=== PATIENT | male | born 1935 | race Caucasian/White ===

== ENCOUNTER 2024-11-13 10:59 | Day surgery (SDC) | payer MEDICARE, SELFPAY ==
[2024-11-13] VITALS (7 sets, daily range): BP systolic 112–139; BP diastolic 65–78; PULSE 60–91; RESP 16; TEMP 36.2–36.6; O2SAT 96–98; BMI 28.0
--- NOTE | 2024-11-13 11:15 | PCM.HP.STD ---
HPI - General HPI Narrative ORLANDO BENSON, is a 89 M who presents with left forearm SSC, keratoacanthomatous type. I reviewed the pathology report and patient confirmed the site (from August 2024). Current Encounter (DATE OF SURGERY H&P UPDATE): I saw and examined the patient this morning in pre-operative holding. We discussed risks and benefits of today's surgery and they would like to proceed. NO CHANGE in health history since last seen and evaluated. Ready to proceed with surgery. [facility] Medical History Vertigo Wears glasses Easy bruising Former smoker Bladder cancer Skin cancer Hypertension Cancer Diabetes Bladder infection Home Medications ?Medication ?Instructions ?Recorded ?Last Taken ?Type aspirin 81 mg tablet 81 mg PO QDAY 10/25/24 Unknown History cholecalciferol (vitamin D3) 125 125 mcg PO QDAY 10/25/24 Unknown History mcg (5,000 unit) capsule lenalidomide 10 mg capsule 10 mg PO QDAY 10/25/24 Unknown History lisinopril 10 mg tablet 10 mg PO QDAY 10/25/24 Unknown History metformin 500 mg tablet,extended 500 mg PO QDAY 10/25/24 Unknown History release 24 hr (Glucophage XR) prochlorperazine maleate 10 mg 10 mg PO Q6H PRN nausea and 10/25/24 Unknown History tablet (Compazine) vomiting valacyclovir 500 mg tablet 500 mg PO QDAY 10/25/24 Unknown History (Valtrex) Allergy/AdvReac Type Severity Reaction Status Date / Time No Known Allergies Allergy Verified 10/31/24 14:59 Family History Son Colon cancer Father Diabetes Surgical History Hx of inguinal hernia surgery H/O prostatectomy Social History Smoking Status: Former smoker alcohol intake: current substance use type: does not use additional social history: pt former smoker, denies ibuprofen use, pt has history of DVT Pt takes aspiring daily Physical Exam Narrative Details - Skin: Lesion on left forearm measuring 3.1 by 2.9 cm, indurated with some redness - Neurological: No numbness or tingling in the left dorsum of the hand - Lymphatic: No left axillary or epitrochlear lymphadenopathy I marked it and patient was in agreement with the site marking. 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 The low white blood cell count will be monitored, and its impact on wound healing and skin graft success will be considered. I talked to the patient extensively about the risks of surgery, including bleeding, infection, damage to surrounding structures (particularly the superficial branch of the radial nerve), poor scaring, surgical site dehiscence and wound formation, skin graft failure, need for wound care, need for repeat operations, failure to obtain the desired result, DVT/PE, and the risks of anesthesia including , including stroke (from low blood pressure/ischemia or clot). The benefits and alternatives of this surgery were also discussed. All of their questions were answered, and they agreed to proceed with surgery. Stage 1: Excision squamous left forearm cell carcinoma and placement of temporary dressing (dermal substitute) (CPT: 69828, 61062) Stage 2: Skin graft left forearm (CPT, 49966, 95266) once clear margins (skin graft from left anterior arm) Both MAC/local INTERVAL H&P PLAN, DATE OF SURGERY: We will proceed with surgery today. Plan Details I reiterated the above noted plan and the risks, benefits, and alternatives with the patient. He was in agreement and elected to proceed.
--- NOTE | 2024-11-13 11:15 | PCM.HP.STD ---
HPI - General HPI Narrative ORLANDO BENSON, is a 89 M who presents with left forearm SSC, keratoacanthomatous type. I reviewed the pathology report and patient confirmed the site (from August 2024). Current Encounter (DATE OF SURGERY H&P UPDATE): I saw and examined the patient this morning in pre-operative holding. We discussed risks and benefits of today's surgery and they would like to proceed. NO CHANGE in health history since last seen and evaluated. Ready to proceed with surgery. [facility] Medical History Vertigo Wears glasses Easy bruising Former smoker Bladder cancer Skin cancer Hypertension Cancer Diabetes Bladder infection Home Medications ?Medication ?Instructions ?Recorded ?Last Taken ?Type aspirin 81 mg tablet 81 mg PO QDAY 10/25/24 Unknown History cholecalciferol (vitamin D3) 125 125 mcg PO QDAY 10/25/24 Unknown History mcg (5,000 unit) capsule lenalidomide 10 mg capsule 10 mg PO QDAY 10/25/24 Unknown History lisinopril 10 mg tablet 10 mg PO QDAY 10/25/24 Unknown History metformin 500 mg tablet,extended 500 mg PO QDAY 10/25/24 Unknown History release 24 hr (Glucophage XR) prochlorperazine maleate 10 mg 10 mg PO Q6H PRN nausea and 10/25/24 Unknown History tablet (Compazine) vomiting valacyclovir 500 mg tablet 500 mg PO QDAY 10/25/24 Unknown History (Valtrex) Allergy/AdvReac Type Severity Reaction Status Date / Time No Known Allergies Allergy Verified 10/31/24 14:59 Family History Son Colon cancer Father Diabetes Surgical History Hx of inguinal hernia surgery H/O prostatectomy Social History Smoking Status: Former smoker alcohol intake: current substance use type: does not use additional social history: pt former smoker, denies ibuprofen use, pt has history of DVT Pt takes aspiring daily Physical Exam Narrative Details - Skin: Lesion on left forearm measuring 3.1 by 2.9 cm, indurated with some redness - Neurological: No numbness or tingling in the left dorsum of the hand - Lymphatic: No left axillary or epitrochlear lymphadenopathy I marked it and patient was in agreement with the site marking. 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 The low white blood cell count will be monitored, and its impact on wound healing and skin graft success will be considered. I talked to the patient extensively about the risks of surgery, including bleeding, infection, damage to surrounding structures (particularly the superficial branch of the radial nerve), poor scaring, surgical site dehiscence and wound formation, skin graft failure, need for wound care, need for repeat operations, failure to obtain the desired result, DVT/PE, and the risks of anesthesia including , including stroke (from low blood pressure/ischemia or clot). The benefits and alternatives of this surgery were also discussed. All of their questions were answered, and they agreed to proceed with surgery. Stage 1: Excision squamous left forearm cell carcinoma and placement of temporary dressing (dermal substitute) (CPT: 38608, 48124) Stage 2: Skin graft left forearm (CPT, 51590, 72577) once clear margins (skin graft from left anterior arm) Both MAC/local INTERVAL H&P PLAN, DATE OF SURGERY: We will proceed with surgery today. Plan Details I reiterated the above noted plan and the risks, benefits, and alternatives with the patient. He was in agreement and elected to proceed.
[2024-11-13] MEDS: Lactated Ringers 1,000 ML 15 ML IV (11:30)
--- NOTE | 2024-11-13 11:36 | PRE.ANES_ITS ---
ASA Classification* ASA Classification ASA Classification: 3 Assessment & Plan Anesthesia* Anesthesia Assessment Anesthesia Assessment: Discussed sedation and/or anesthesia options, risks, benefits, and alternatives with patient/parents/legal guardian/POA. Questions invited. The patient/parents/legal guardian/POA seems to understand and agrees to proceed with anesthesia plan. Reviewed the physical assessment, medical history, allergy history and patient home medications list prior to surgery/procedure/anesthetic and documented any changes. Performed airway and anesthesia risk assessments. Procedural Plan Procedural Plan:: NOT optimized for anesthesia Anesthesia Type Anesthesia Type: MAC History Source History Obtained from:: Patient and Chart Anesthesia Focused Assessment* Temperature: 97.2 F Pulse Rate: 60 Blood Pressure: 139/77 Respiratory Rate: 16 Pulse Ox: 96 Oxygen Delivery Method: Room Air Airway Assessment Mouth opens: >3 cm Mallampati Score: I Teeth Condition: Intact Labs Anesthesia Preop lab: CBC CHEMISTRY COAG Pre-Assessment Diagnosis/Proposed Procedure Planned Operative Procedure(s): EXCISISON SQUAMOUS CELL CARCINOMA LEFT FOREARM AND PLACEMENT OF TEMPORARY DRESSING- THERASKIN Anesthesia History 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 When Was Last Pacemaker Check QUESTION #4 FULL TEXT: You/Your Family Experience fever (hyperthermia) with Anesthesia Last Oral Intake Last Oral intake: Last Oral Intake NPO since 07:00 11/13/24 11:25 Meds taken in AM with sips of Yes 11/13/24 11:25 water? Meds patient instructed to vit d 11/13/24 11:25 take am of surgery lisinopril metformin valtrex PONV PONV - metal model maker: PONV - metal model maker Female No 10/31/24 15:02 HX of Motion Sickness No 10/31/24 15:02 HX of N/V After Surgery No 10/31/24 15:02 Non-Smoker Yes 10/31/24 15:02 Duration of Surgery greater No 10/31/24 15:02 than 60 minutes Number of Risk Factors 1 10/31/24 15:02 PONV Score Low Risk 10/31/24 15:02 Height & Weight Height & Weight: Anesthesia: Height & Weight Height 5 ft 9 in 11/13/24 11:25 Weight: 86 kg 11/13/24 11:25 Body Mass Index (BMI) 28.0 11/13/24 11:25 Respiratory Assessment Respiratory Assessment - metal model maker: Respiratory Tract Infection Hx - metal model maker Hx Respiratory Tract Infection No 10/31/24 15:02 STOP Sleep Apnea STOP Sleep Apnea - metal model maker: STOP Sleep Apnea - metal model maker Hx Hypertension Yes: CONTROLLED WITH MEDS 10/31/24 15:02 Hx Sleep Apnea No 10/31/24 15:02 CPAP BIPAP Do you snore loudly (louder No 10/31/24 15:02 than talking or can be heard Do you often feel tired/ No 10/31/24 15:02 fatigued/ sleepy during daytime? Has anyone observed you stop No 10/31/24 15:02 breathing during sleep? STOP Results Negative 10/31/24 15:02 QUESTION #5 FULL TEXT : Do you snore loudly (louder than talking or can be heard through closed doors)? 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 Specify any problems Hx of Preganancy in last 3 N/A 10/31/24 15:02 Months Nurse Filling Out Transfusion [email or web address] 10/31/24 15:02 & Questions: Date: 10/31/24 10/31/24 15:02 Time: 15:10/31/24 15:02 Patient unable to answer at this time (ie. confused, unrespo /Reproduction History /Reproductive History - metal model maker: /Reproductive Hx- metal model maker Hx Now Gestational Age (in weeks): EDC: Hx Hx Para Hx Section SAB Active Medications Active Medications: Current Medications Generic Name Dose Route Start Last Admin Trade Name Freq PRN Reason Stop Dose Admin Cefazolin Sodium 2 gm/ Sodium 110 mls @ 200 mls/hr 11/13/24 13:30 Chloride IV 11/13/24 14:02 INTRAOP ONE Lactated Ringer's 1,000 mls @ 15 mls/hr 11/13/24 11:15 11/13/24 11:30 IV 15 mls/hr .Q48H CHAVO Administration PFSH Medical History Vertigo Wears glasses Easy bruising Former smoker Bladder cancer Skin cancer Hypertension Cancer Diabetes Bladder infection Home Medications ?Medication ?Instructions ?Recorded ?Last Taken ?Type cholecalciferol (vitamin D3) 125 125 mcg PO QDAY 10/2511/13/24 History mcg (5,000 unit) capsule lenalidomide 10 mg capsule 10 mg PO QDAY 10/25/2412/23 History lisinopril 10 mg tablet 10 mg PO QDAY 10/25/2411/13 History metformin 500 mg tablet,extended 500 mg PO QDAY 11/13/24 History release 24 hr (Glucophage XR) prochlorperazine maleate 10 mg 10 mg PO Q6H PRN nausea and 10/25/24 Unknown History tablet (Compazine) vomiting valacyclovir 500 mg tablet 500 mg PO QDAY 10/25/24 History (Valtrex) apixaban 5 mg tablet (Eliquis) 10 mg PO BID 11/13/24 0 11/12/24 History aspirin 325 mg tablet,delayed 325 mg PO DAILY 11/13/24 11/10/24 History release (Ecotrin) oxycodone 5 mg tablet 5 mg PO BID PRN pain 5 days #10 11/13/24 Unknown Rx tabs Allergy/AdvReac Type Severity Reaction Status Date / Time No Known Allergies Allergy Verified 10/31/24 14:59 Family History Son Colon cancer Father Diabetes Surgical History Hx of inguinal hernia surgery H/O prostatectomy Social History Smoking Status: Former smoker alcohol intake: current substance use type: does not use additional social history: pt former smoker, denies ibuprofen use, pt has history of DVT Pt takes aspiring daily Review of Systems (Anesthesia) ROS Narrative System reviewed and no additional complaints, except as documented. Physical Exam Const alert and oriented x3 Skin Skin Narrative: left forearm skin lesion Neuro oriented x3
--- NOTE | 2024-11-13 11:36 | PRE.ANES_ITS ---
ASA Classification* ASA Classification ASA Classification: 3 Assessment & Plan Anesthesia* Anesthesia Assessment Anesthesia Assessment: Discussed sedation and/or anesthesia options, risks, benefits, and alternatives with patient/parents/legal guardian/POA. Questions invited. The patient/parents/legal guardian/POA seems to understand and agrees to proceed with anesthesia plan. Reviewed the physical assessment, medical history, allergy history and patient home medications list prior to surgery/procedure/anesthetic and documented any changes. Performed airway and anesthesia risk assessments. Procedural Plan Procedural Plan:: NOT optimized for anesthesia Anesthesia Type Anesthesia Type: MAC History Source History Obtained from:: Patient and Chart Anesthesia Focused Assessment* Temperature: 97.2 F Pulse Rate: 60 Blood Pressure: 139/77 Respiratory Rate: 16 Pulse Ox: 96 Oxygen Delivery Method: Room Air Airway Assessment Mouth opens: >3 cm Mallampati Score: I Teeth Condition: Intact Labs Anesthesia Preop lab: CBC CHEMISTRY COAG Pre-Assessment Diagnosis/Proposed Procedure Planned Operative Procedure(s): EXCISISON SQUAMOUS CELL CARCINOMA LEFT FOREARM AND PLACEMENT OF TEMPORARY DRESSING- THERASKIN Anesthesia History 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 When Was Last Pacemaker Check QUESTION #4 FULL TEXT: You/Your Family Experience fever (hyperthermia) with Anesthesia Last Oral Intake Last Oral intake: Last Oral Intake NPO since 07:00 11/13/24 11:25 Meds taken in AM with sips of Yes 11/13/24 11:25 water? Meds patient instructed to vit d 11/13/24 11:25 take am of surgery lisinopril metformin valtrex PONV PONV - business objects analyst: PONV - business objects analyst Female No 10/31/24 15:02 HX of Motion Sickness No 10/31/24 15:02 HX of N/V After Surgery No 10/31/24 15:02 Non-Smoker Yes 10/31/24 15:02 Duration of Surgery greater No 10/31/24 15:02 than 60 minutes Number of Risk Factors 1 10/31/24 15:02 PONV Score Low Risk 10/31/24 15:02 Height & Weight Height & Weight: Anesthesia: Height & Weight Height 5 ft 9 in 11/13/24 11:25 Weight: 86 kg 11/13/24 11:25 Body Mass Index (BMI) 28.0 11/13/24 11:25 Respiratory Assessment Respiratory Assessment - business objects analyst: Respiratory Tract Infection Hx - business objects analyst Hx Respiratory Tract Infection No 10/31/24 15:02 STOP Sleep Apnea STOP Sleep Apnea - business objects analyst: STOP Sleep Apnea - business objects analyst Hx Hypertension Yes: CONTROLLED WITH MEDS 10/31/24 15:02 Hx Sleep Apnea No 10/31/24 15:02 CPAP BIPAP Do you snore loudly (louder No 10/31/24 15:02 than talking or can be heard Do you often feel tired/ No 10/31/24 15:02 fatigued/ sleepy during daytime? Has anyone observed you stop No 10/31/24 15:02 breathing during sleep? STOP Results Negative 10/31/24 15:02 QUESTION #5 FULL TEXT : Do you snore loudly (louder than talking or can be heard through closed doors)? 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 Specify any problems Hx of Preganancy in last 3 N/A 10/31/24 15:02 Months Nurse Filling Out Transfusion [email or web address] 10/31/24 15:02 & Questions: Date: 10/31/24 10/31/24 15:02 Time: 15:10/31/24 15:02 Patient unable to answer at this time (ie. confused, unrespo /Reproduction History /Reproductive History - business objects analyst: /Reproductive Hx- business objects analyst Hx Now Gestational Age (in weeks): EDC: Hx Hx Para Hx Section SAB Active Medications Active Medications: Current Medications Generic Name Dose Route Start Last Admin Trade Name Freq PRN Reason Stop Dose Admin Cefazolin Sodium 2 gm/ Sodium 110 mls @ 200 mls/hr 11/13/24 13:30 Chloride IV 11/13/24 14:02 INTRAOP ONE Lactated Ringer's 1,000 mls @ 15 mls/hr 11/13/24 11:15 11/13/24 11:30 IV 15 mls/hr .Q48H CHAVO Administration PFSH Medical History Vertigo Wears glasses Easy bruising Former smoker Bladder cancer Skin cancer Hypertension Cancer Diabetes Bladder infection Home Medications ?Medication ?Instructions ?Recorded ?Last Taken ?Type cholecalciferol (vitamin D3) 125 125 mcg PO QDAY 10/2511/13/24 History mcg (5,000 unit) capsule lenalidomide 10 mg capsule 10 mg PO QDAY 10/25/2412/23 History lisinopril 10 mg tablet 10 mg PO QDAY 10/25/2411/13 History metformin 500 mg tablet,extended 500 mg PO QDAY 11/13/24 History release 24 hr (Glucophage XR) prochlorperazine maleate 10 mg 10 mg PO Q6H PRN nausea and 10/25/24 Unknown History tablet (Compazine) vomiting valacyclovir 500 mg tablet 500 mg PO QDAY 10/25/24 History (Valtrex) apixaban 5 mg tablet (Eliquis) 10 mg PO BID 11/13/24 0 11/12/24 History aspirin 325 mg tablet,delayed 325 mg PO DAILY 11/13/24 11/10/24 History release (Ecotrin) oxycodone 5 mg tablet 5 mg PO BID PRN pain 5 days #10 11/13/24 Unknown Rx tabs Allergy/AdvReac Type Severity Reaction Status Date / Time No Known Allergies Allergy Verified 10/31/24 14:59 Family History Son Colon cancer Father Diabetes Surgical History Hx of inguinal hernia surgery H/O prostatectomy Social History Smoking Status: Former smoker alcohol intake: current substance use type: does not use additional social history: pt former smoker, denies ibuprofen use, pt has history of DVT Pt takes aspiring daily Review of Systems (Anesthesia) ROS Narrative System reviewed and no additional complaints, except as documented. Physical Exam Const alert and oriented x3 Skin Skin Narrative: left forearm skin lesion Neuro oriented x3
--- NOTE | 2024-11-13 11:37 | OP.PCM_ITS ---
Operative Report (Standard) Operative Information Date of Procedure: 11/13/24 Pre-Operative Diagnosis: Left forearm squamous cell carcinoma, keratoacanthomatous subtype Post-Operative Diagnosis: Same Surgery/Procedure Performed: 1) Excision of left forearm squamous cell carcinoma, keratoacanthomatous subtype, 6 mm margins, 7 x 6 cm (CPT: 47306) 2) Dermal substitute placement for temporary dressing, left forearm, 7 x 6 cm (CPT: 13805) extrusion manager: Yes Purchasing Specialist: Gabbie Chatterjee Tasks completed by waiter/waitress first class: Retracting Type of Anesthesia: Local MAC (20 cc of 50/50 mixture 1% lidocaine with 1- 200,000 epinephrine and quarter percent Marcaine with 1-200,000 epinephrine. ) RN Documented Start/Stop Times: Operation Date: 11/13/24 13:00
--- NOTE | 2024-11-13 11:37 | OP.PCM_ITS ---
Operative Report (Standard) Operative Information Date of Procedure: 11/13/24 Pre-Operative Diagnosis: Left forearm squamous cell carcinoma, keratoacanthomatous subtype Post-Operative Diagnosis: Same Surgery/Procedure Performed: 1) Excision of left forearm squamous cell carcinoma, keratoacanthomatous subtype, 6 mm margins, 7 x 6 cm (CPT: 12849) 2) Dermal substitute placement for temporary dressing, left forearm, 7 x 6 cm (CPT: 38843) network systems administrator: Yes Benefits Manager: Gabbie Chatterjee Tasks completed by senior sales assistant: Retracting Type of Anesthesia: Local MAC (20 cc of 50/50 mixture 1% lidocaine with 1- 200,000 epinephrine and quarter percent Marcaine with 1-200,000 epinephrine. ) RN Documented Start/Stop Times: Operation Date: 11/13/24 13:00
--- NOTE | 2024-11-13 11:37 | PCM.OPRPT ---
Operative Report (Standard) Operative Information Date of Procedure: 11/13/24 Pre-Operative Diagnosis: Left forearm squamous cell carcinoma, keratoacanthomatous subtype Post-Operative Diagnosis: Same Surgery/Procedure Performed: 1) Excision of left forearm squamous cell carcinoma, keratoacanthomatous subtype, 6 mm margins, 7 x 6 cm (CPT: 46470) 2) Dermal substitute placement for temporary dressing, left forearm, 7 x 6 cm (CPT: 61535) process manager: Yes Cma: Gabbie Chatterjee Tasks completed by miller head assistant wet process: Retracting Type of Anesthesia: Local MAC (20 cc of 50/50 mixture 1% lidocaine with 1-200,000 epinephrine and quarter percent Marcaine with 1-200,000 epinephrine. ) RN Documented Start/Stop Times: Operation Date: 11/13/24 13:00 Case Time Into Pre-Op 11/13/24 11:03 Anesthesia Start 11/13/24 11:40 Into Room 11/13/24 11:40 Procedure Start 11/13/24 11:54 Procedure End 11/13/24 12:12 Anesthesia End 11/13/24 12:16 Out of Room 11/13/24 12:16 Into Recovery 11/13/24 12:18 Out of Recovery 11/13/24 12:36 Into Phase II Recovery 11/13/24 12:37 Out of Phase II 11/13/24 13:11 Procedure Start Time: 11:54 Procedure Stop Time: 12:12 Select all DRAINS/GRAFTS/IMPLANTS that apply: Tissue (Cadaver allograft) Tissue details: TheraSkin cadaver allograft for temporary dressing with a bolster Estimated Blood Loss: 20 cc Specimen collected: Yes Description of specimen(s) removed: Left forearm squamous cell carcinoma marked proximal short suture (12:00), long radial (9:00) Description of surgery: Indications: Ricardo Burgos is an 89-year-old male who has a 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 He presents today for excision. Procedure details: Patient was correct identified in preoperative holding and the mass was marked with 6 mm margins around the clinically positive areas. He was taken back to the operating room where he was administered sedation and local anesthesia as noted above. He was prepped and draped in sterile fashion. Timeout was performed. A 15 blade scalpel was used to excise the squamous cell carcinoma with 6 mm margins. It was excised down to the the underlying fascia with care taken to prevent damage to the superficial branch of the radial nerve which was not exposed at the base. The lesion was marked short proximal (12:00) and long radial (9:00). It was sent to pathology. Hemostasis obtained with bipolar electrocautery. The mass measured 6 x 7 cm. The wound bed was then treated with cadaver allograft (TheraSkin) for 6 x 7 cm for temporary dressing while we await permanent section margins. This was sutured into place with 3-0 Vicryl interrupted sutures with a tie-over Xeroform and cotton ball bolster. ABD and tape were applied. Patient tolerated the procedure well. He was awakened and taken to the PACU in stable condition. Postoperative plan: Plan to take the patient back to the operating room for a skin graft once we have definitive margins. Surgical Findings: No signs of invasion beneath the subcutaneous tissue Complications Complications: No Admit VTE Documentation VTE Present on Admission: Yes VTE Mechan Device Prophylaxis: SCD's (On the leg without a DVT)
--- NOTE | 2024-11-13 11:37 | PCM.OPRPT ---
Operative Report (Standard) Operative Information Date of Procedure: 11/13/24 Pre-Operative Diagnosis: Left forearm squamous cell carcinoma, keratoacanthomatous subtype Post-Operative Diagnosis: Same Surgery/Procedure Performed: 1) Excision of left forearm squamous cell carcinoma, keratoacanthomatous subtype, 6 mm margins, 7 x 6 cm (CPT: 40363) 2) Dermal substitute placement for temporary dressing, left forearm, 7 x 6 cm (CPT: 89467) parole or probation officer: Yes Nylon Mender: Gabbie Chatterjee Tasks completed by assistant women's basketball coach: Retracting Type of Anesthesia: Local MAC (20 cc of 50/50 mixture 1% lidocaine with 1-200,000 epinephrine and quarter percent Marcaine with 1-200,000 epinephrine. ) RN Documented Start/Stop Times: Operation Date: 11/13/24 13:00 Case Time Into Pre-Op 11/13/24 11:03 Anesthesia Start 11/13/24 11:40 Into Room 11/13/24 11:40 Procedure Start 11/13/24 11:54 Procedure End 11/13/24 12:12 Anesthesia End 11/13/24 12:16 Out of Room 11/13/24 12:16 Into Recovery 11/13/24 12:18 Out of Recovery 11/13/24 12:36 Into Phase II Recovery 11/13/24 12:37 Out of Phase II 11/13/24 13:11 Procedure Start Time: 11:54 Procedure Stop Time: 12:12 Select all DRAINS/GRAFTS/IMPLANTS that apply: Tissue (Cadaver allograft) Tissue details: TheraSkin cadaver allograft for temporary dressing with a bolster Estimated Blood Loss: 20 cc Specimen collected: Yes Description of specimen(s) removed: Left forearm squamous cell carcinoma marked proximal short suture (12:00), long radial (9:00) Description of surgery: Indications: Ricardo Burgos is an 89-year-old male who has a 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 He presents today for excision. Procedure details: Patient was correct identified in preoperative holding and the mass was marked with 6 mm margins around the clinically positive areas. He was taken back to the operating room where he was administered sedation and local anesthesia as noted above. He was prepped and draped in sterile fashion. Timeout was performed. A 15 blade scalpel was used to excise the squamous cell carcinoma with 6 mm margins. It was excised down to the the underlying fascia with care taken to prevent damage to the superficial branch of the radial nerve which was not exposed at the base. The lesion was marked short proximal (12:00) and long radial (9:00). It was sent to pathology. Hemostasis obtained with bipolar electrocautery. The mass measured 6 x 7 cm. The wound bed was then treated with cadaver allograft (TheraSkin) for 6 x 7 cm for temporary dressing while we await permanent section margins. This was sutured into place with 3-0 Vicryl interrupted sutures with a tie-over Xeroform and cotton ball bolster. ABD and tape were applied. Patient tolerated the procedure well. He was awakened and taken to the PACU in stable condition. Postoperative plan: Plan to take the patient back to the operating room for a skin graft once we have definitive margins. Surgical Findings: No signs of invasion beneath the subcutaneous tissue Complications Complications: No Admit VTE Documentation VTE Present on Admission: Yes VTE Mechan Device Prophylaxis: SCD's (On the leg without a DVT)
[2024-11-13] MEDS: Lidocaine 1% /Epi 1:100 (20ml) 20 ML Vial (11:56)
[2024-11-13] MEDS: Bupiv/Epi 0.25% 30 ML Vial (11:56)
--- NOTE | 2024-11-13 12:19 | PCM.POST.ANE ---
Anesthesia: Postop Eval I Current Vital Signs Temperature: 97.9 F Pulse Rate: 87 Blood Pressure: 112/65 Respiratory Rate: 16 Pulse Ox: 97 Oxygen Delivery Method: Room Air Assessment Airway patent: Yes Spontaneous unlabored respirations: Yes Mental status: Awake and Calm nausea: No Vomiting: No Anesthesia Complication: No Fluid Hydration Crystalloid volume administer (ml): 400 Total IV fluid infused: 400 Progress Note Anesthesia document: Postop Eval 1 completed: Yes
--- NOTE | 2024-11-13 13:00 | LES_PTH ---
PATIENT: ORLANDO BENSON LOC: [facility] – [place] U#:[id number] AGE/SX: 89/M ROOM: RE11/13/[address]: Dr. Dontae Gaviria MD : 1935 BED: DIS: 11/13/2024 SPEC #: [id number] RECD: 11/13/24 13:44 STATUS: AKOSUA REHerminia #: [id number] SABRINA: 11/13/24 13:[address]: Dontae Gaviria DEPT: SURGICAL PATHOLOGY RECD BY: Gunnar Mayes ENTERED: 11/13/24 14:28 SP TYPE: Lesion OTHR DR: Dr. Raymundo Gonzalez MD Tissues: A - Skin of forearm, NOS Procedures: Surgery Specimen Level IV HEADER OPERATION: Excision squamous cell carcinoma left forearm and placement PRE-OP DIAGNOSIS: Squamous cell carcinoma of skin of left forearm TISSUE SUBMITTED: A- Squamous cell carcinoma of skin of left forearm *short tag- proximal 12o'clock, long tag- radial 9o'clock* MICROSCOPIC DIAGNOSIS A. Skin, left forearm, squamous cell carcinoma, excision: - Invasive well-differentiated crateriform squamous cell carcinoma, surgical margins free. - The tumor invades the mid-deep reticular dermis. - No lymphovascular or perineural invasion observed. MICROSCOPIC DESCRIPTION Slides are reviewed. GROSS DESCRIPTION Received in formalin labeled with the patient's name and date of . Designated as squamous cell carcinoma of skin of left forearm is a 5.5 x 5.2 cm, hairbearing, ovoid skin ellipse excised to a maximum depth of 0.4 cm and with orientation as follows:Short suture: designated as (proximal) 12:00. Long suture: designated as (radial) 9:00. There is a 3.6 x 3.3 cm cherry-white, raised rubbery and centrally ulcerated located the following distances from the margins:12:00: 1.2 cm 3:00: 1.3 cm 6:00: 1.0 cm9:00: 1.0 cmDeep: 0.1 cm Ink cannon: 12:00 half (deep): Black3:00 (periphery): Green9:00 (periphery): Blue6:00 half (deep): Mower The specimen is serially sectioned from superior to inferior revealing that the lesion extends approximately 0.3 cm into the underlying tissue. There is a focal, hemorrhagic calcification near the 12:00 end. community relations representative sections are submitted as follows: A1: 12:00 end with calcification, perpendicular, following decalcificationA2-A3: Central cross-sections with lesion to closest 3:00/9:00/deepA4: 6:00 end, perpendicular SC 11/14/2024 CPT: [id number]
--- NOTE | 2024-11-13 13:00 | LES_PTH ---
PATIENT: ORLANDO BENSON LOC: [facility] U#:[id number] AGE/SX: 89/M ROOM: RE11/13/[address]: Dr. Dontae Gaviria MD : 1935 BED: DIS: 11/13/2024 SPEC #: [id number] RECD: 11/13/24 13:44 STATUS: AKOSUA REHerminia #: [id number] SABRINA: 11/13/24 13:[address]: Dontae Gaviria DEPT: SURGICAL PATHOLOGY RECD BY: Gunnar Mayes ENTERED: 11/13/24 14:28 SP TYPE: Lesion OTHR DR: Dr. Raymundo Gonzalez MD Tissues: A - Skin of forearm, NOS Procedures: Surgery Specimen Level IV HEADER OPERATION: Excision squamous cell carcinoma left forearm and placement PRE-OP DIAGNOSIS: Squamous cell carcinoma of skin of left forearm TISSUE SUBMITTED: A- Squamous cell carcinoma of skin of left forearm *short tag- proximal 12o'clock, long tag- radial 9o'clock* MICROSCOPIC DIAGNOSIS A. Skin, left forearm, squamous cell carcinoma, excision: - Invasive well-differentiated crateriform squamous cell carcinoma, surgical margins free. - The tumor invades the mid-deep reticular dermis. - No lymphovascular or perineural invasion observed. MICROSCOPIC DESCRIPTION Slides are reviewed. GROSS DESCRIPTION Received in formalin labeled with the patient's name and date of . Designated as squamous cell carcinoma of skin of left forearm is a 5.5 x 5.2 cm, hairbearing, ovoid skin ellipse excised to a maximum depth of 0.4 cm and with orientation as follows:Short suture: designated as (proximal) 12:00. Long suture: designated as (radial) 9:00. There is a 3.6 x 3.3 cm cherry-white, raised rubbery and centrally ulcerated located the following distances from the margins:12:00: 1.2 cm 3:00: 1.3 cm 6:00: 1.0 cm9:00: 1.0 cmDeep: 0.1 cm Ink cannon: 12:00 half (deep): Black3:00 (periphery): Green9:00 (periphery): Blue6:00 half (deep): Garfield The specimen is serially sectioned from superior to inferior revealing that the lesion extends approximately 0.3 cm into the underlying tissue. There is a focal, hemorrhagic calcification near the 12:00 end. sales representative printing paper sections are submitted as follows: A1: 12:00 end with calcification, perpendicular, following decalcificationA2-A3: Central cross-sections with lesion to closest 3:00/9:00/deepA4: 6:00 end, perpendicular SC 11/14/2024 CPT: [id number]
--- NOTE | 2024-11-13 16:03 | POSTOPAN2_ITS ---
Anesthesia Postop Eval I Sum Postop Eval Completion status Anesthesia document: Postop Eval 1 completed: Yes Anesthesia Postop Eval I Summary Anesthesia Postop Eval I Summary: Anesthesia Postop Eval I: Assessment Summary Airway patent Yes 11/13/24 12:20 WOMEN'S HEALTH CARE NURSE PRACTITIONER.GDOTT Spontaneous unlabored Yes 11/13/24 12:20 WOMEN'S HEALTH CARE NURSE PRACTITIONER.GDOTT respirations Mental status Awake,Calm 11/13/24 12:20 WOMEN'S HEALTH CARE NURSE PRACTITIONER.GDOTT nausea No 11/13/24 12:20 WOMEN'S HEALTH CARE NURSE PRACTITIONER.GDOTT Vomiting No 11/13/24 12:20 WOMEN'S HEALTH CARE NURSE PRACTITIONER.GDOTT Anesthesia Postop Eval I: Fluid Summary Crystalloid volume administer 400 11/13/24 12:20 WOMEN'S HEALTH CARE NURSE PRACTITIONER.GDOTT (ml) Colloids volume administered ( ml) Blood Product volume administered (ml) Total IV fluid infused 400 11/13/24 12:20 WOMEN'S HEALTH CARE NURSE PRACTITIONER.GDOTT Anesthesia Postop Eval I: Summary Notes Anesthesia Complication No 11/13/24 12:20 WOMEN'S HEALTH CARE NURSE PRACTITIONER.GDOTT Anesthesia Complication Comment: Post-operative progress note Anesthesia: Postop Eval II Evaluation Mental status: Awake and Calm Pain Level: 2 nausea: No Vomiting: No Complications Anesthesia Complication: No
--- NOTE | 2024-11-13 16:03 | POSTOPAN2_ITS ---
Anesthesia Postop Eval I Sum Postop Eval Completion status Anesthesia document: Postop Eval 1 completed: Yes Anesthesia Postop Eval I Summary Anesthesia Postop Eval I Summary: Anesthesia Postop Eval I: Assessment Summary Airway patent Yes 11/13/24 12:20 RELIGIOUS ASSISTANT.GDOTT Spontaneous unlabored Yes 11/13/24 12:20 RELIGIOUS ASSISTANT.GDOTT respirations Mental status Awake,Calm 11/13/24 12:20 RELIGIOUS ASSISTANT.GDOTT nausea No 11/13/24 12:20 RELIGIOUS ASSISTANT.GDOTT Vomiting No 11/13/24 12:20 RELIGIOUS ASSISTANT.GDOTT Anesthesia Postop Eval I: Fluid Summary Crystalloid volume administer 400 11/13/24 12:20 RELIGIOUS ASSISTANT.GDOTT (ml) Colloids volume administered ( ml) Blood Product volume administered (ml) Total IV fluid infused 400 11/13/24 12:20 RELIGIOUS ASSISTANT.GDOTT Anesthesia Postop Eval I: Summary Notes Anesthesia Complication No 11/13/24 12:20 RELIGIOUS ASSISTANT.GDOTT Anesthesia Complication Comment: Post-operative progress note Anesthesia: Postop Eval II Evaluation Mental status: Awake and Calm Pain Level: 2 nausea: No Vomiting: No Complications Anesthesia Complication: No
--- NOTE | 2024-11-13 16:03 | PCM.POSTANE2 ---
Anesthesia Postop Eval I Sum Postop Eval Completion status Anesthesia document: Postop Eval 1 completed: Yes Anesthesia Postop Eval I Summary Anesthesia Postop Eval I Summary: Anesthesia Postop Eval I: Assessment Summary Airway patent Yes 11/13/24 12:20 SPINNER OPEN END.GDOTT Spontaneous unlabored Yes 11/13/24 12:20 SPINNER OPEN END.GDOTT respirations Mental status Awake,Calm 11/13/24 12:20 SPINNER OPEN END.GDOTT nausea No 11/13/24 12:20 SPINNER OPEN END.GDOTT Vomiting No 11/13/24 12:20 SPINNER OPEN END.GDOTT Anesthesia Postop Eval I: Fluid Summary Crystalloid volume administer 400 11/13/24 12:20 SPINNER OPEN END.GDOTT (ml) Colloids volume administered ( ml) Blood Product volume administered (ml) Total IV fluid infused 400 11/13/24 12:20 SPINNER OPEN END.GDOTT Anesthesia Postop Eval I: Summary Notes Anesthesia Complication No 11/13/24 12:20 SPINNER OPEN END.GDOTT Anesthesia Complication Comment: Post-operative progress note Anesthesia: Postop Eval II Evaluation Mental status: Awake and Calm Pain Level: 2 nausea: No Vomiting: No Complications Anesthesia Complication: No
--- NOTE | 2024-11-13 16:03 | PCM.POSTANE2 ---
Anesthesia Postop Eval I Sum Postop Eval Completion status Anesthesia document: Postop Eval 1 completed: Yes Anesthesia Postop Eval I Summary Anesthesia Postop Eval I Summary: Anesthesia Postop Eval I: Assessment Summary Airway patent Yes 11/13/24 12:20 SOCIAL WORKER PALLIATIVE CARE.GDOTT Spontaneous unlabored Yes 11/13/24 12:20 SOCIAL WORKER PALLIATIVE CARE.GDOTT respirations Mental status Awake,Calm 11/13/24 12:20 SOCIAL WORKER PALLIATIVE CARE.GDOTT nausea No 11/13/24 12:20 SOCIAL WORKER PALLIATIVE CARE.GDOTT Vomiting No 11/13/24 12:20 SOCIAL WORKER PALLIATIVE CARE.GDOTT Anesthesia Postop Eval I: Fluid Summary Crystalloid volume administer 400 11/13/24 12:20 SOCIAL WORKER PALLIATIVE CARE.GDOTT (ml) Colloids volume administered ( ml) Blood Product volume administered (ml) Total IV fluid infused 400 11/13/24 12:20 SOCIAL WORKER PALLIATIVE CARE.GDOTT Anesthesia Postop Eval I: Summary Notes Anesthesia Complication No 11/13/24 12:20 SOCIAL WORKER PALLIATIVE CARE.GDOTT Anesthesia Complication Comment: Post-operative progress note Anesthesia: Postop Eval II Evaluation Mental status: Awake and Calm Pain Level: 2 nausea: No Vomiting: No Complications Anesthesia Complication: No
== END 2024-11-13 13:12 | disposition home or self-care (01) ==
LOC: SDC 11:00 → AC 11:02
PROVIDERS: Referring Provider Surgery Plastic and Reconstructive Surgery; Visit Provider Surgery Plastic and Reconstructive Surgery
PROC: (CPT 11604; principal; 2024-11-13 12:50)
DX: C44.629 Squamous cell carcinoma of skin of left upper limb, including shoulder (principal); E11.9 Type 2 diabetes mellitus without complications; Z87.891 Personal history of nicotine dependence; I10 Essential (primary) hypertension; Z79.84 Long term (current) use of oral hypoglycemic drugs; Z79.82 Long term (current) use of aspirin; Z85.51 Personal history of malignant neoplasm of bladder
CPT/HCPCS: 11604; 15271; 00300; 88305; Q4121

== ENCOUNTER 2024-11-20 10:18 | Day surgery (SDC) | payer MEDICARE, SELFPAY ==
[2024-11-20] VITALS (9 sets, daily range): BP systolic 128–153; BP diastolic 71–83; PULSE 66–84; RESP 16–18; TEMP 36.4–36.7; O2SAT 94–97; BMI 28.3
--- NOTE | 2024-11-20 10:31 | PCM.HP.STD ---
HPI - General HPI Narrative ORLANDO BENSON, is a 89 M who presents for skin grafting to the left forearm. Pathology resulted in well-differentiated squamous cell carcinoma. Surgical margins were free Deep margin was less than 0.1 cm per pathology report. I talked to the patient about excising a deep margin to get a further clear margin as able, with reconstruction with the skin graft today. He understands the risks, benefits, and alternatives to this. He would like to proceed with this plan including skin grafting. I offered him referral to radiation oncology for an opinion and he deferred. [facility] Medical History Vertigo Wears glasses Easy bruising Former smoker Bladder cancer Skin cancer Hypertension Diabetes Home Medications Medication Instructions Recorded Last Taken Type cholecalciferol (vitamin D3) 125 125 mcg PO QDAY 10/25/24 11/19/24 History mcg (5,000 unit) capsule lisinopril 10 mg tablet 10 mg PO QDAY 10/25/24 11/19/24 History metformin 500 mg tablet,extended 1,000 mg PO BID 10/25/24 11/19/24 History release 24 hr (Glucophage XR) prochlorperazine maleate 10 mg 10 mg PO Q6H PRN nausea and 10/25/24 Unknown History tablet (Compazine) vomiting valacyclovir 500 mg tablet 500 mg PO QDAY 10/25/24 11/19/24 History (Valtrex) apixaban 5 mg tablet (Eliquis) 10 mg PO BID 11/13/24 11/18/24 History aspirin 325 mg tablet,delayed 325 mg PO DAILY 11/13/24 11/17/24 History release (Ecotrin) oxycodone 5 mg tablet 5 mg PO BID PRN pain 5 days #10 11/13/24 Unknown Rx tabs Allergy/AdvReac Type Severity Reaction Status Date / Time No Known Allergies Allergy Verified 11/20/24 10:44 Family History Son Colon cancer Father Diabetes Surgical History History of excision of lesion Hx of inguinal hernia surgery H/O prostatectomy Social History Smoking Status: Former smoker alcohol intake: current substance use type: does not use additional social history: pt former smoker, denies ibuprofen use, pt has history of DVT Pt takes aspiring daily Physical Exam Narrative Bolster in place left upper extremity About the left forearm and the left thigh with skin grafting procedure Assessment & Plan Assessment/Plan (1) Squamous cell carcinoma of skin of left forearm: PLAN: Surgical margins free from resection Plan for skin grafting today with bolster Patient happy with the plan He understands the risks of bleeding, infection, skin graft failure, and failure to obtain the desired result need for wound care (also understands the risks of cancer recurrence and further margins required). INTERVAL H&P PLAN, DATE OF SURGERY: We will proceed with surgery today.
[2024-11-20] MEDS: Lactated Ringers 1,000 ML 15 ML IV (10:54)
--- NOTE | 2024-11-20 11:18 | PCM.PRE.AN2 ---
ASA Classification* ASA Classification ASA Classification: 3 Assessment & Plan Anesthesia* Anesthesia Assessment Anesthesia Assessment: Discussed sedation and/or anesthesia options, risks, benefits, and alternatives with patient/parents/legal guardian/POA. Questions invited. The patient/parents/legal guardian/POA seems to understand and agrees to proceed with anesthesia plan. Reviewed the physical assessment, medical history, allergy history and patient home medications list prior to surgery/procedure/anesthetic and documented any changes. Performed airway and anesthesia risk assessments. Anesthesia Type Anesthesia Type: MAC History Source History Obtained from:: Patient and Chart Anesthesia Focused Assessment* Temperature: 97.6 F Pulse Rate: 78 Blood Pressure: 153/76 Respiratory Rate: 16 Pulse Ox: 97 Oxygen Delivery Method: Room Air Airway Assessment Mouth opens: >3 cm Mallampati Score: III Teeth Condition: Caps/Crowns (Patient has multiple crowns. 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 When Was Last Pacemaker Check QUESTION #4 FULL TEXT: You/Your Family Experience fever (hyperthermia) with Anesthesia Last Oral Intake Last Oral intake: Last Oral Intake NPO since 23:00 11/20/24 10:46 Meds taken in AM with sips of No 11/20/24 10:46 water? Meds patient instructed to take am of surgery PONV PONV - architectural project manager: PONV - architectural project manager Female No 11/19/24 14:59 HX of Motion Sickness Yes 11/19/24 14:59 HX of N/V After Surgery No 11/19/24 14:59 Non-Smoker Yes 11/19/24 14:59 Duration of Surgery greater Yes 11/19/24 14:59 than 60 minutes Number of Risk Factors 3 11/19/24 14:59 PONV Score Moderate Risk 11/19/24 14:59 Height & Weight Height & Weight: Anesthesia: Height & Weight Height 5 ft 9 in 11/20/24 10:46 Weight: 87 kg 11/20/24 10:46 Body Mass Index (BMI) 28.3 11/20/24 10:46 Respiratory Assessment Respiratory Assessment - architectural project manager: Respiratory Tract Infection Hx - architectural project manager Hx Respiratory Tract Infection No 11/19/24 14:59 STOP Sleep Apnea STOP Sleep Apnea - architectural project manager: STOP Sleep Apnea - architectural project manager Hx Hypertension Yes: CONTROLLED WITH MEDS 11/19/24 14:59 Hx Sleep Apnea No 11/19/24 14:59 CPAP BIPAP Do you snore loudly (louder No 11/19/24 14:59 than talking or can be heard Do you often feel tired/ Yes 11/19/24 14:59 fatigued/ sleepy during daytime? Has anyone observed you stop No 11/19/24 14:59 breathing during sleep? STOP Results Positive 11/19/24 14:59 QUESTION #5 FULL TEXT : Do you snore loudly (louder than talking or can be heard through closed doors)? 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 Specify any problems Hx of Preganancy in last 3 N/A 11/19/24 14:59 Months Nurse Filling Out Transfusion DSCHRIBER 11/19/24 14:59 & Questions: Date: 11/19/24 11/19/24 14:59 Time: 15:00 11/19/24 14:59 Patient unable to answer at this time (ie. confused, unrespo /Reproduction History /Reproductive History - architectural project manager: /Reproductive Hx- architectural project manager Hx Now Gestational Age (in weeks): EDC: Hx Hx Para Hx Section SAB Active Medications Active Medications: Current Medications Generic Name Dose Route Start Last Admin Trade Name Freq PRN Reason Stop Dose Admin Cefazolin Sodium 2 gm/ Sodium 110 mls @ 200 mls/hr 11/20/24 12:05 Chloride IV 11/20/24 12:37 INTRAOP ONE Lactated Ringer's 1,000 mls @ 15 mls/hr 11/20/24 10:45 11/20/24 10:54 IV 15 mls/hr .Q48H CHAVO Administration PFSH Medical History Vertigo Wears glasses Easy bruising Former smoker Bladder cancer Skin cancer Hypertension Diabetes Home Medications Medication Instructions Recorded Last Taken Type cholecalciferol (vitamin D3) 125 125 mcg PO QDAY 10/25/24 11/19/24 History mcg (5,000 unit) capsule lisinopril 10 mg tablet 10 mg PO QDAY 10/25/24 11/19/24 History metformin 500 mg tablet,extended 1,000 mg PO BID 10/25/24 11/19/24 History release 24 hr (Glucophage XR) prochlorperazine maleate 10 mg 10 mg PO Q6H PRN nausea and 10/25/24 Unknown History tablet (Compazine) vomiting valacyclovir 500 mg tablet 500 mg PO QDAY 10/25/24 11/19/24 History (Valtrex) apixaban 5 mg tablet (Eliquis) 10 mg PO BID 11/13/24 11/18/24 History aspirin 325 mg tablet,delayed 325 mg PO DAILY 11/13/24 11/17/24 History release (Ecotrin) oxycodone 5 mg tablet 5 mg PO BID PRN pain 5 days #10 11/13/24 Unknown Rx tabs Allergy/AdvReac Type Severity Reaction Status Date / Time No Known Allergies Allergy Verified 11/20/24 10:44 Family History Son Colon cancer Father Diabetes Surgical History History of excision of lesion Hx of inguinal hernia surgery H/O prostatectomy Social History Smoking Status: Former smoker alcohol intake: current substance use type: does not use additional social history: pt former smoker, denies ibuprofen use, pt has history of DVT Pt takes aspiring daily Review of Systems (Anesthesia) ROS Narrative System reviewed and no additional complaints, except as documented.
--- NOTE | 2024-11-20 12:05 | LES_PTH ---
PATIENT: ORLANDO BENSON [place] [facility] [id number] AGE/SX: 89/M ROOM: RE11/20/[address]: Dr. Dontae Gaviria MD : [id number] BED: DIS: 11/20/2024 SPEC #: [id number] RECD: 11/20/24 13:30 STATUS: AKOSUA JOSELITO #: [id number] SABRINA: 11/20/24 12:[address]: Dontae Gaviria DEPT: SURGICAL PATHOLOGY RECD BY: Gunnar Mayes ENTERED: 11/20/24 14:30 SP TYPE: Lesion OTHR DR: Dr. 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 Forearm, left, "squamous cell carcinoma deep margin", excision: - Subcutaneous adipose tissue with granulation tissue and fat necrosis. - Negative for malignancy. MICROSCOPIC DESCRIPTION Slides are reviewed. GROSS DESCRIPTION A. Received in formalin labeled with the patient's name and date of . Designated as " left forearm deep margin" is a 1.4 x 1.0 x 0.2 cm pink-red shaggy tissue fragment, devoid of orientation. The specimen is inked black and entirely submitted in 1 cassette. KS 11/20/2024 CPT:72770
[2024-11-20] MEDS: Lidocaine 1% /Epi 1:100 (20ml) 20 ML Vial (12:14)
[2024-11-20] MEDS: Bupiv/Epi 0.25% 30 ML Vial (12:14)
[2024-11-20] MEDS: Mineral Oil, Light Sterile 10 ML Vial MC (12:30)
[2024-11-20] MEDS: Epinephrine (1 mg/ml) 1 MG/ML VIAL (12:30)
--- NOTE | 2024-11-20 13:05 | PCM.POST.ANE ---
Anesthesia: Postop Eval I Current Vital Signs Temperature: 97.8 F Pulse Rate: 82 Blood Pressure: 138/82 Respiratory Rate: 18 Pulse Ox: 97 Assessment Airway patent: Yes Spontaneous unlabored respirations: Yes nausea: No Vomiting: No Anesthesia Complication: No Fluid Hydration Crystalloid volume administer (ml): 500 Total IV fluid infused: 500 Progress Note Anesthesia document: Postop Eval 1 completed: Yes
--- NOTE | 2024-11-20 13:14 | PCM.OPRPT ---
Operative Report (Standard) Operative Information Date of Procedure: 11/20/24 Pre-Operative Diagnosis: Left forearm wound after squamous cell carcinoma (SCC) excision Post-Operative Diagnosis: Same Surgery/Procedure Performed: 1) Surgical preparation of the left forearm wound, 7 x 6 cm () 2) Split-thickness skin graft, left thigh to left forearm, meshed 1.5 x 1, total of 7 x 6 cm ([id number]) clinical pharmacy manager: Yes Pasteurizing Machine Operator: Bri Worrell Tasks completed by post production assistant: Closing and Retracting Type of Anesthesia: MAC/Supplemental (25 cc of 50-50 mixture of quarter percent Marcaine with 1-200,000 epinephrine and 1% lidocaine with 1 and 200,000 epinephrine) RN Documented Start/Stop Times: Operation Date: 11/20/24 12:05 Case Time Into Pre-Op 11/20/24 10:34 Anesthesia Start 11/20/24 11:57 Into Room 11/20/24 11:57 Out of Pre-Op 11/20/24 12:15 Procedure Start 11/20/24 12:28 Procedure End 11/20/24 12:53 Anesthesia End 11/20/24 13:01 Out of Room 11/20/24 13:01 Into Recovery 11/20/24 13:03 Procedure Start Time: 12:28 Procedure Stop Time: 12:53 Select all DRAINS/GRAFTS/IMPLANTS that apply: None Estimated Blood Loss: 20 cc Specimen collected: Yes Description of specimen(s) removed: Deep margin beneath area of previously resected squamous cell carcinoma Description of surgery: Indications: Ricardo Burgos is a delightful 89-year-old male who underwent a left dorsal/radial forearm squamous cell carcinoma excision with me 1 week ago. Tumor had low-grade pathology, and the margins were deemed to be clear, but the deep margins was than 0.1 cm. I talked the patient about excision of small/thin deep margin (for extra reassurance) followed by reconstruction with a skin graft, followed by monitoring of the skin graft for any signs of recurrence of squamous cell carcinoma. He was in agreement with this plan and elected to proceed. Procedure details: Patient was marked in preoperative holding and taken back to the operating room where he was administered sedation and local anesthesia as noted above. He was prepped and draped in sterile fashion after the bolster was removed. A timeout was performed. The TheraSkin was removed and the wound bed was determined to be healthy enough for grafting. 15 blade scalpel was used to excise residual loose areolar tissue from the base of the wound at the level of the fascia which was sent to pathology. There were no exposed critical structures at this point. A curette was then used to freshen the edges of the wound sharply and the wound was irrigated with copious months normal saline and Irrisept for a total surgical preparation of 6 x 7 cm. Hemostasis obtained with Bovie electrocautery. Attention was then turned to the left thigh where a Bernardo dermatome was used to take a 12/1,000th inch skin graft which was meshed to 1.5-1 on the back table and placed on the wound bed. It was then sutured into place/trimmed to fit to 6 x 7 cm. 3-0 Vicryl pop-off's were used for the inset and were tied over a Xeroform and cotton ball bolster. The donor site was dressed with Mepilex Ag, ABDs, and Ioban. ABD and tape were placed over the posterior on the left forearm. Patient tolerated the procedure well and he was awakened and taken to the PACU in stable condition. Surgical Findings: No signs of recurrent or residual tumor Healthy wound bed ready for grafting Complications Complications: No Admit VTE Documentation VTE Mechan Device Prophylaxis: SCD's
--- NOTE | 2024-11-20 13:15 | PCM.POSTANE2 ---
Anesthesia Postop Eval I Sum Anesthesia Postop Eval I Summary Anesthesia Postop Eval I Summary: Anesthesia Postop Eval I: Assessment Summary Airway patent Spontaneous unlabored respirations Mental status nausea Vomiting Anesthesia Postop Eval I: Fluid Summary Crystalloid volume administer (ml) Colloids volume administered ( ml) Blood Product volume administered (ml) Total IV fluid infused Anesthesia Postop Eval I: Summary Notes Anesthesia Complication Anesthesia Complication Comment: Post-operative progress note Anesthesia: Postop Eval II Evaluation Mental status: Awake and Calm Pain Level: 0 nausea: No Vomiting: No Complications Anesthesia Complication: No
== END 2024-11-20 14:06 | disposition home or self-care (01) ==
LOC: SDC 10:19 → AC 10:20
PROVIDERS: Referring Provider Surgery Plastic and Reconstructive Surgery; Visit Provider Surgery Plastic and Reconstructive Surgery
PROC: (CPT 15100; principal; 2024-11-20 11:50)
DX: C44.629 Squamous cell carcinoma of skin of left upper limb, including shoulder (principal); E11.9 Type 2 diabetes mellitus without complications; Z87.891 Personal history of nicotine dependence; I10 Essential (primary) hypertension; Z85.51 Personal history of malignant neoplasm of bladder
CPT/HCPCS: 15100; 15002; 00400; 82962; 88305; J2405